=== PATIENT | male | born 1940 | race Caucasian/White ===

== ENCOUNTER → 2016-08-26 | Outpatient (CLI) | payer OTHER, MEDICARE ==
[~2016-08-26] MED LIST: AMLO5TAB4 PO; ASPI81TA21 PO; FISHOIL PO; GLC5500 PO; LISI-725 PO; LOVA40TA3 PO; MAGN400T5 PO; MULTTAB PO; SYN112 PO
[2016-08-26 13:20] LABS: ALT/SGPT 24 U/L (12-78); AST/SGOT 17 U/L (15-37); BLOOD UREA NITROGEN 16 mg/dl (7-18); BUN/CREATININE RATIO 15.9 (10-20); CALCIUM 9.4 mg/dl (8.5-10.1); CARBON DIOXIDE 26 mmol/L (21-32); CHLORIDE 104 mmol/L (98-107); CHOLESTEROL 193 mg/dl (0-200); GLUCOSE 193 mg/dl (70-99); POTASSIUM 4.3 mmol/L (3.5-5.1); SODIUM 139 mmol/L (136-145); TRIGLYCERIDES 197 mg/dl (0-150); VERY LOW DENSITY LIPOPROT CALC 39 mg/dl
[2016-08-26 13:23] LABS: ESTIMATED AVERAGE GLUCOSE 183 mg/dl; HA1C FLAG Normal (Normal)
[2016-08-26 13:30] LABS: CHOLESTEROL/HDL RATIO 5.4; HDL CHOLESTEROL 36 mg/dl; LDL CHOLESTEROL CALCULATED 118 mg/dl
[2016-08-26 13:45] LABS: RATIO 9.3 mcg/mg (0-30.0)
== END | disposition home or self-care (01) ==
LOC: C.LABMFLN 07:28
PROVIDERS: ATTEND Family Medicine
DX: E11.9 Type 2 diabetes mellitus without complications (principal); E78.00 Pure hypercholesterolemia, unspecified; E03.9 Hypothyroidism, unspecified; I10 Essential (primary) hypertension

== ENCOUNTER → 2016-11-25 | Outpatient (CLI) | payer OTHER, MEDICARE ==
[2016-11-25 13:54] LABS: BLOOD UREA NITROGEN 18 mg/dl (7-18); BUN/CREATININE RATIO 18.1 (10-20); CALCIUM 9.2 mg/dl (8.5-10.1); CARBON DIOXIDE 28 mmol/L (21-32); CHLORIDE 108 mmol/L (98-107); CREATININE 0.99 mg/dl (0.60-1.40); GLUCOSE 137 mg/dl (70-99); POTASSIUM 4.2 mmol/L (3.5-5.1); SODIUM 144 mmol/L (136-145)
[2016-11-25 13:57] LABS: ESTIMATED AVERAGE GLUCOSE 140 mg/dl; HA1C FLAG Normal (Normal)
== END | disposition home or self-care (01) ==
LOC: C.LABMFLN 08:59
PROVIDERS: ATTEND Family Medicine
DX: E11.9 Type 2 diabetes mellitus without complications (principal); E78.00 Pure hypercholesterolemia, unspecified

== ENCOUNTER → 2016-12-02 | Outpatient (CLI) | payer OTHER, MEDICARE | END | disposition home or self-care (01) | LOC: C.LABMFLN 15:00 | PROVIDERS: ATTEND Family Medicine | DX: R10.9 Unspecified abdominal pain (principal) ==

== ENCOUNTER → 2017-04-03 | Outpatient (CLI) | payer OTHER, MEDICARE ==
[2017-04-03 13:10] LABS: ESTIMATED AVERAGE GLUCOSE 134 mg/dl; HA1C FLAG Normal (Normal)
[2017-04-03 13:18] LABS: ALT/SGPT 26 U/L (12-78); BLOOD UREA NITROGEN 18 mg/dl (7-18); CALCIUM 9.4 mg/dl (8.5-10.1); CARBON DIOXIDE 29 mmol/L (21-32); CHLORIDE 107 mmol/L (98-107); CHOLESTEROL 184 mg/dl (0-200); GLUCOSE 143 mg/dl (70-99); POTASSIUM 4.4 mmol/L (3.5-5.1); SODIUM 141 mmol/L (136-145); TRIGLYCERIDES 90 mg/dl (0-150); VERY LOW DENSITY LIPOPROT CALC 18 mg/dl
[2017-04-03 13:21] LABS: ALB/GLOB RATIO 1.2 (0.9-2); ALKALINE PHOSPHATASE 46 U/L (45-117); AST/SGOT 27 U/L (15-37); CHOLESTEROL/HDL RATIO 4.5; HDL CHOLESTEROL 41 mg/dl; LDL CHOLESTEROL CALCULATED 125 mg/dl
== END | disposition home or self-care (01) ==
LOC: C.LABMFLN 08:34
PROVIDERS: ATTEND Family Medicine
DX: E11.9 Type 2 diabetes mellitus without complications (principal); E78.00 Pure hypercholesterolemia, unspecified; E03.9 Hypothyroidism, unspecified; I10 Essential (primary) hypertension

== ENCOUNTER → 2017-07-11 | Outpatient (CLI) | payer OTHER, MEDICARE ==
[~2017-07-11] MED LIST changes: +ASPI-319 PO; -ASPI81TA21 PO
== END | disposition home or self-care (01) ==
LOC: C.LABMFLN 13:31
PROVIDERS: ATTEND Family Medicine
DX: M54.5 Low back pain (principal)

== ENCOUNTER → 2017-10-02 | Outpatient (CLI) | payer OTHER, MEDICARE ==
[~2017-10-02] MED LIST changes: -ASPI-319 PO; +ASPI81TA21 PO
[2017-10-02 13:50] LABS: HEMOGLOBIN A1C 6.6 % (4.5-5.6)
[2017-10-02 14:15] LABS: ALBUMIN 3.7 gm/dl (3.4-5.0); ALT/SGPT 28 U/L (12-78); AST/SGOT 22 U/L (15-37); BLOOD UREA NITROGEN 20 mg/dl (7-18); CALCIUM 8.9 mg/dl (8.5-10.1); CARBON DIOXIDE 26 mmol/L (21-32); CREATININE 1.07 mg/dl (0.60-1.40); GLUCOSE 166 mg/dl (70-99); POTASSIUM 4.2 mmol/L (3.5-5.1); SODIUM 140 mmol/L (136-145)
[2017-10-02 14:26] LABS: ALKALINE PHOSPHATASE 58 U/L (45-117); CHOLESTEROL 195 mg/dl (0-200); LDL CHOLESTEROL CALCULATED 137 mg/dl; TOTAL PROTEIN 7.2 gm/dl (6.4-8.2)
== END | disposition home or self-care (01) ==
LOC: C.LABMFLN 07:18
PROVIDERS: ATTEND Family Medicine
DX: E11.9 Type 2 diabetes mellitus without complications (principal); E78.00 Pure hypercholesterolemia, unspecified; E03.9 Hypothyroidism, unspecified; I10 Essential (primary) hypertension

== ENCOUNTER 2021-11-23 15:55 | Observation (INO) ==
[2021-11-23 16:58] LABS: Basophils # (auto) 0.02 K/uL (0-0.2); Basophils % (auto) 0.2 %; Eosinophils # (auto) 0.42 K/uL (0-0.5); Eosinophils % (auto) 3.8 %; Hematocrit (blood only) 36.9 % (42-52); Hemoglobin 12.2 g/dL (14.0-18.0); Immature Granulocytes # (auto) 0.03 K/uL (0.00-0.02); Immature Granulocytes % (auto) 0.3 %; Lymphocytes # (auto) 3.44 K/uL (1.2-3.4); Lymphocytes % (auto) 30.9 %; Mean Corpuscular Hemoglobin 30.4 pg (25-34); Mean Corpuscular Hgb Conc 33.1 g/dL (32-36); Mean Platelet Volume 9.1 fL (7.4-10.4); Monocytes # (auto) 1.07 K/uL (0.11-0.59); Monocytes % (auto) 9.6 %; Neutrophils # (auto) 6.14 K/uL (1.4-6.5); Neutrophils % (auto) 55.2 %; Platelet Count 568 K/uL (130-400); RDW Coefficient of Variation 13.9 % (11.5-14.5); RDW Standard Deviation 47.2 fL (36.4-46.3); Red Blood Count 4.01 M/uL (4.7-6.1); White Blood Count 11.12 K/uL (4.8-10.8)
[2021-11-23 17:13] LABS: Alanine Aminotransferase 11 U/L (7-52); Albumin Globulin Ratio 1.2 (0.9-2); Albumin Level 3.8 gm/dl (3.4-5.0); Alkaline Phosphatase 61 U/L (34-104); Anion Gap 7 (3-11); Aspartate Aminotransferase 12 U/L (13-39); BUN Creatinine Ratio 24.2 (10-20); Bilirubin,Total 0.2 mg/dl (0.2-1.0); Blood Urea Nitrogen 30 mg/dl (6-23); Calcium 9.7 mg/dl (8.5-10.1); Carbon Dioxide 30 mmol/L (21-32); Chloride 98 mmol/L (98-107); Est GFR (African American) 63.2 ml/min; Est GFR (Non-African American) 54.6 ml/min; Globulin 3.3 gm/dl (2.5-4.0); Glucose 179 mg/dl (70-99(Fasting)); Potassium 4.3 mmol/L (3.5-5.1); Sodium 135 mmol/L (136-145); Total Protein 7.1 gm/dl (6.0-8.3)
--- NOTE | 2021-11-23 17:33 | Emergency Department Note ---
History of Present Illness General Chief complaint: Skin Problem Stated complaint: BACK SURGERY 11/14, OPEN BED SORES, FALL Time Seen by Provider: 11/23/21 17:08 Source: patient and family (Daughter who at the bedside) Mode of arrival: ambulatory Limitations: no limitations History of Present Illness Maximum Pain Intensity: 5 This patient is a 81-year-old male who comes in with weakness and bedsores. He had L5-S1 back surgery in [place] November 14 and was discharged 2 days later to home his daughter says they have had no home nursing or PT arranged and has had a very hard time at home. Prior to this he was very fit and bicycles every day. He has pain in his back which goes down his leg he had this prior to surgery but is gotten worse since the surgery but not over the last couple days no new numbness weakness over the last couple days no change in bowel or bladder function. He noticed he had a bedsore about 1 day ago because he is not getting up and down. He was seen in [place] [facility] on Friday and had x-rays of the hip and the back which were unremarkable. He fell yesterday in the bathroom and got tangled up with a walker there were no injuries. He has been taking hydrocodone and Valium which is making him very spacey. No fever no chest pain shortness breath or cough he has had the COVID-vaccine and booster x2, no sick contacts, no dysuria hematuria. he has had 1 bowel movement since he last left the hospital and has been somewhat constipated at times. He has some swelling in his left leg. His daughter wants him to go to rehab they do not feel that he can take care of himself quite yet and are [facility] Home Medications Medication Instructions Recorded Confirmed Type multivitamin (Multiple Vitamins) 1 tab PO DAILY 03/03/19 10/08/21 History omega 8-oos-tsz-fish oil 1,000 mg 1 cap PO DAILY 03/03/19 10/08/21 History (120 mg-180 mg) capsule (Fish Oil) Contour glucometer #1 ea 12/07/19 10/08/21 Rx nystatin 100,000 unit/gram topical 1 applic TOPICAL BID PRN #30 g 09/22/2009/12 Rx cream amlodipine 10 mg tablet 10 mg PO DAILY #90 tab 01/29/21 10/08/21 Rx blood sugar diagnostic (Contour #100 ea 02/06/21 10/08/21 Rx Test Strips) pantoprazole 20 mg tablet,delayed 20 mg PO DAILY 14 Days #14 tab 03/08/21 10/08/21 Rx release lisinopril 40 mg tablet 40 mg PO DAILY #90 tab 03/22/21 10/08/21 Rx cholecalciferol (vitamin D3) 125 125 mcg PO DAILY 04/05/21 10/08/21 History mcg (5,000 unit) capsule levothyroxine 112 mcg tablet 112 mcg PO DAILY #90 tab 04/16/21 10/08/21 Rx empagliflozin 25 mg tablet 25 mg PO QAM #90 tab 08/14/21 10/08/21 Rx saxagliptin 5 mg tablet 5 mg PO DAILY #90 tab 08/14/21 10/08/21 Rx metformin 500 mg tablet,extended 1,000 mg PO BID #360 tab 10/08/21 10/08/21 Rx release 24hr saw palmetto 1,000 mg capsule 1,000 mg PO DAILY 10/08/21 10/08/21 History glipizide 10 mg tablet 10 mg PO BID #360 tab 10/11/21 Rx Allergies Allergy/AdvReac Type Severity Reaction Status Date / Time No Known Allergies Allergy Verified 10/08/21 13:59 Past Med/Surg History Medical History Back pain Benign essential hypertension Carpal tunnel syndrome, right Chills Chronic left sacroiliac joint pain Diabetes mellitus Hypercholesterolemia Hypothyroidism Left foot drop Lethargy Lumbago Lumbar radiculopathy Medicare annual wellness visit, subsequent Pulmonary nodules Sacroiliitis Type 2 diabetes mellitus Vitamin B12 deficiency Surgical History Hx of tonsillectomy S/P cholecystectomy S/P splenectomy Family History Father Heart disease CHF Mother Cancer leukemia Social History Smoking Status: Never smoker Age Started Using Tobacco: 13; Age Quit Using Tobacco: 19; packs per day: 1; Hx Alcohol Use: No Hx Substance Use: No Preferred Language: Citizen Of [place] Visual Impairment: No Limitations Hearing Ability: Normal marital status: Current Living Situation: Spouse current occupational status: retired Feels Safe at Home: Yes caffeine: Yes (coffee) Dental Care, Regularly: No Physical Activity Frequency: Other Physical Activity Frequency Comment: limited activity d/t fx tibia - rides bike Seatbelt Use: always Sunscreen Use: No Review of Systems A total of 10 systems reviewed and were otherwise negative Physical Exam Vital Signs Vital Signs - 24 hr 11/23/21 16:16 11/23/21 17:55 11/23/21 21:00 Temperature 36.8 C 36.8 C 36.8 C Temperature Source Oral Oral Oral Pulse Rate 77 Pulse Rate [Apical] 70 91 H Pulse Rhythm [Apical] Regular Regular Respiratory Rate 16 18 16 Respiratory Effort / Characteristics Non-Labored Respiratory Depth Normal Blood Pressure 115/68 Blood Pressure [Right Arm] 130/73 139/72 Blood Pressure Mean 83 Blood Pressure Mean [Right Arm] 92 94 Pulse Oximetry 98 97 93 Oxygen Delivery Method Room Air Room Air Sepsis Recent Fever Within 48 Hours No Sepsis New/Unexplained Change in Mental Status No Sepsis Action Taken by Nursing No Action Required General: Well developed well nourished in no acute distress, breathing comfortably on room air. Normal speech HEENT: Normal cephalic atraumatic. Pupils are equal round and reactive to light. Extraocular movements are intact. Oropharynx is pink with moist mucous membranes. No swelling of the mouth lips or tongue. Neck: Supple with a midline trachea. No meningeal signs or stiffness, no JVD or bruits. No Stridor. Chest: Clear to auscultation bilaterally. No wheezes or rhonchi. No increased work of breathing. Heart: Regular rate and rhythm without murmurs or gallops. Abdomen: Soft nontender, nondistended without rebound guarding or rigidity. Extremities: No cyanosis clubbing. There is mild lower extremity edema in the left compared to the right. No calf tenderness or assymetry Spine/Back. Non tender to palpation. No CVA tenderness. The incision is intact there is a small incision from the drain in the right lower back as well. There is no redness or pus drainage there is minimal postop swelling. Buttocks: There is some superficial skin breakdown centrally but no redness or warmth or drainage. Skin: Good turgor without rashes. Neurologic exam: Cranial nerves two through 12 are intact. Motor and sensation are intact and symmetrical throughout. Course Administered Medications Discontinued Medications Ketorolac Tromethamine (Ketorolac Tromethamine 15 Mg/Ml Vial) 10 mg IV NOW ONE Stop: 11/23/21 21:06 Last Admin: 11/23/21 21:21 Dose: Not Given Documented by: [id number] Morphine Sulfate (Morphine Sulfate 2 Mg/Ml Carp) 2 mg IV NOW STA Stop: 11/23/21 18:34 Last Admin: 11/23/21 18:39 Dose: 2 mg Documented by: [id number] Morphine Sulfate (Morphine Sulfate 2 Mg/Ml Carp) 2 mg IV NOW STA Stop: 11/23/21 19:15 Last Admin: 11/23/21 19:30 Dose: 2 mg Documented by: [id number] Morphine Sulfate (Morphine Sulfate 2 Mg/Ml Carp) 2 mg IV NOW STA Stop: 11/23/21 21:09 Last Admin: 11/23/21 21:19 Dose: 2 mg Documented by: [id number] Ondansetron HCl (Ondansetron Inj 2 Mg/Ml 2 Ml Vial) 4 mg IV NOW STA Stop: 11/23/21 18:34 Last Admin: 11/23/21 18:40 Dose: 4 mg Documented by: [id number] Medical Decision Making Differential Diagnosis Bedsore, weakness, postop complication, DVT, infection, electrolyte or metabolic Medical Records Attestation: I reviewed the patient's medical records. Home Medications Current Medication List: was personally reviewed by me Laboratory Data Attestation: I reviewed the patient's lab results. Result diagrams: 11/23/21 16:35 11/23/21 16:35 Lab Results 11/23/21 11/23/21 11/23/21 Range/Units 16:35 16:35 17:30 WBC 11.12 H (4.8-10.8) K/uL RBC 4.01 L (4.7-6.1) M/uL Hgb 12.2 L (14.0-18.0) g/dL Hct 36.9 L (42-52) % MCV 92.0 (80-100) fL MCH 30.4 (25-34) pg MCHC 33.1 (32-36) g/dL RDW Std Deviation 47.2 H (36.4-46.3) fL RDW Coeff of Karen 13.9 (11.5-14.5) % Plt Count 568 H (130-400) K/uL MPV 9.1 (7.4-10.4) fL Immature Gran % (Auto) 0.3 % Neut % (Auto) 55.2 % Lymph % (Auto) 30.9 % Forrest % (Auto) 9.6 % Eos % (Auto) 3.8 % Baso % (Auto) 0.2 % Neut # (Auto) 6.14 (1.4-6.5) K/uL Lymph # (Auto) 3.44 H (1.2-3.4) K/uL Forrest # (Auto) 1.07 H (0.11-0.59) K/uL Eos # (Auto) 0.42 (0-0.5) K/uL Baso # (Auto) 0.02 (0-0.2) K/uL Immature Gran # (Auto) 0.03 H (0.00-0.02) K/uL Sodium 135 L (136-145) mmol/L Potassium 4.3 (3.5-5.1) mmol/L Chloride 98 (98-107) mmol/L Carbon Dioxide 30 (21-32) mmol/L Anion Gap 7 (3-11) BUN 30 H (6-23) mg/dl Creatinine 1.24 (0.6-1.4) mg/dl Est Cr Clr Drug Dosing Not Reportable Est GFR ( Amer) 63.2 ml/min Est GFR (Non-Af Amer) 54.6 ml/min BUN/Creatinine Ratio 24.2 H (10-20) Glucose 179 H (70-99(Fasting)) mg/dl Calcium 9.7 (8.5-10.1) mg/dl Total Bilirubin 0.2 (0.2-1.0) mg/dl AST 12 L (13-39) U/L ALT 11 (7-52) U/L Alkaline Phosphatase 61 (34-104) U/L Total Protein 7.1 (6.0-8.3) gm/dl Albumin 3.8 (3.4-5.0) gm/dl Globulin 3.3 (2.5-4.0) gm/dl Albumin/Globulin Ratio 1.2 (0.9-2) Urine Color Urine Appearance (Clear) Urine pH (4.5-7.5) Ur Specific [place] (1.000-1.030) Urine Protein (Negative) Urine Glucose (UA) (Negative) Urine Ketones (Negative) Urine Blood (Negative) Urine Nitrite (Negative) Urine Bilirubin (Negative) Urine Urobilinogen (Negative) Ur Leukocyte Esterase (Negative) SARS-CoV-2, RNA, NAAT NEGATIVE (NEGATIVE) 11/23/21 Range/Units 18:00 WBC (4.8-10.8) K/uL RBC (4.7-6.1) M/uL Hgb (14.0-18.0) g/dL Hct (42-52) % MCV (80-100) fL MCH (25-34) pg MCHC (32-36) g/dL RDW Std Deviation (36.4-46.3) fL RDW Coeff of Karen (11.5-14.5) % Plt Count (130-400) K/uL MPV (7.4-10.4) fL Immature Gran % (Auto) % Neut % (Auto) % Lymph % (Auto) % Forrest % (Auto) % Eos % (Auto) % Baso % (Auto) % Neut # (Auto) (1.4-6.5) K/uL Lymph # (Auto) (1.2-3.4) K/uL Forrest # (Auto) (0.11-0.59) K/uL Eos # (Auto) (0-0.5) K/uL Baso # (Auto) (0-0.2) K/uL Immature Gran # (Auto) (0.00-0.02) K/uL Sodium (136-145) mmol/L Potassium (3.5-5.1) mmol/L Chloride (98-107) mmol/L Carbon Dioxide (21-32) mmol/L Anion Gap (3-11) BUN (6-23) mg/dl Creatinine (0.6-1.4) mg/dl Est Cr Clr Drug Dosing Est GFR ( Amer) ml/min Est GFR (Non-Af Amer) ml/min BUN/Creatinine Ratio (10-20) Glucose (70-99(Fasting)) mg/dl Calcium (8.5-10.1) mg/dl Total Bilirubin (0.2-1.0) mg/dl AST (13-39) U/L ALT (7-52) U/L Alkaline Phosphatase (34-104) U/L Total Protein (6.0-8.3) gm/dl Albumin (3.4-5.0) gm/dl Globulin (2.5-4.0) gm/dl Albumin/Globulin Ratio (0.9-2) Urine Color Yellow Urine Appearance Clear (Clear) Urine pH 5.0 (4.5-7.5) Ur Specific [place] 1.025 (1.000-1.030) Urine Protein Negative (Negative) Urine Glucose (UA) 3+ H (Negative) Urine Ketones Negative (Negative) Urine Blood Negative (Negative) Urine Nitrite Negative (Negative) Urine Bilirubin Negative (Negative) Urine Urobilinogen Negative (Negative) Ur Leukocyte Esterase Negative (Negative) SARS-CoV-2, RNA, NAAT (NEGATIVE) Imaging Data Radiologist's Impression: Venous Doppler Study 11/23/21 17:26 LEFT LOWER EXTREMITY VENOUS DOPPLER HISTORY: Left leg swelling. COMPARISON STUDY: None. FINDINGS: There is normal compressibility, flow, and augmentation within the left lower extremity deep venous system. IMPRESSION: No DVT within the left lower extremity. ACT 112: Negative or not required by law. Electronically signed by: Alexei Zazueta M.D. 11/23/2021 8:00 PM MDM Narrative This patient comes in as described above. He had some bedsores and difficulty with his pain at home he has no new numbness or weakness no new change in bowel or bladder function the incision has some mild postop swelling but no redness warmth or drainage. The incision is intact. There is a 6 small bedsore which is superficial at this point. I think the patient does need rehab and pain management. Blood work was obtained. He did receive morphine 2 mg IV while he was here as well as receive Zofran 4 mg IV. He seems much more comfortable with this his white count is mildly elevated however there is no signs of infection. he has no significant electrolyte or metabolic abnormalities. Ultrasound was leg was unremarkable. He is having trouble getting around at home and I do think he needs rehab. [facility] could not take him tonight we will have him be admitted here for weakness and amatory dysfunction and likely be transferred to [facility] at some point. I did consult the [facility] hospitalist to see him in the ER for these measures Impression & Plan Weakness, Back pain, History of back surgery, Lab test negative for COVID-19 virus, Decubitus skin ulcer Discharge Plan Visit Data Chief Complaint: Skin Problem Stated Complaint: BACK SURGERY 5/, OPEN BED SORES, FALL ED Provider: Iron Wei Discharge Problem: Weakness, Back pain, History of back surgery, Lab test negative for COVID-19 virus, Decubitus skin ulcer Patient Disposition: Admitted As Inpatient Discharge Instructions Interventions: ED Discharge Assessment Last Done: 11/23/21 22:23 Discharge Problem: Back pain Qualifiers: Back pain location: low back pain Chronicity: acute Back pain laterality: left Sciatica presence: with sciatica Sciatica laterality: sciatica of left side Qualified Code(s): M54.42 - Lumbago with sciatica, left side Decubitus skin ulcer Qualifiers: Pressure injury location: sacral region Pressure injury stage: stage 1 Qualified Code(s): L89.151 - Pressure ulcer of sacral region, stage 1
[2021-11-23 18:24] LABS: Appearance Urine Clear (Clear); Bilirubin Urine Negative (Negative); Blood Urine Negative (Negative); Color Urine Yellow; Glucose Urine UA 3+ (Negative); Ketones Urine Negative (Negative); Leukocyte Esterase Urine Negative (Negative); Nitrite Urine Negative (Negative); Protein Urine Negative (Negative); Specific Gravity Urine 1.025 (1.000-1.030); Urobilinogen Urine Negative (Negative)
[2021-11-23] MEDS ORDERED: ONDANSETRON INJ 2 MG/ML 2 ML VIAL IV STA (18:33)
[2021-11-23] MEDS ORDERED: MoRPHine SULFATE 2 MG/ML CARP IV STA ×3 (18:33→21:08)
--- NOTE | 2021-11-23 20:01 | Ultrasound Report ---
LEFT LOWER EXTREMITY VENOUS DOPPLER HISTORY: Left leg swelling. COMPARISON STUDY: None. FINDINGS: There is normal compressibility, flow, and augmentation within the left lower extremity jackelyn p venous system. IMPRESSION: No DVT within the left lower extremity. ACT 112: Negative or not required by law. Electronically signed by: Alexei Zazueta M.D. 11/23/2021 8:00 PM
[2021-11-23] MEDS ORDERED: KETOROLAC TROMETHAMINE 15 MG/ML VIAL IV ONE (21:05)
--- NOTE | 2021-11-23 21:57 | History & Physical Report ---
Date of Service November 23, 2021 Assessment & Plan (1) Low back pain radiating down leg: Plan: Low back pain radiating down left leg/L5-S1 surgery on 11-14-21-- Admit for pain control and rehab assessment Patient reports he was discharged directly to home, and did not establish with home health nursing or and PT/OT yet Acetaminophen 650 mg p.o. every 6 hours as needed mild pain or fever Mcintosh 5/325, 1 p.o. every 4 hours as needed moderate pain Morphine sulfate 2 mg IV every 4 hours as needed severe pain Consult PT/OT Order CT lumbar spine without contrast (2) History of back surgery: Plan: See above (3) Weakness: Plan: Patient with severe generalized weakness and debilitation Will need inpatient PT/OT/rehab (4) Decubitus skin ulcer: Plan: Early skin breakdown on sacrum and buttock areas Consult wound care (5) Lumbar radiculopathy: Plan: Present before and after surgery, with no significant improvement yet (6) Type 2 diabetes mellitus: Plan: Hold empagliflozin, glipizide and saxagliptin Place on Accu-Cheks before meals and at bedtime with NovoLog coverage per scale (7) Hypothyroidism: Plan: Continue levothyroxine 112 mcg daily (8) Benign essential hypertension: Plan: Reduce amlodipine from 10 to 5 mg daily Continue lisinopril 40 mg daily History of Present Illness Chief Complaint: The patient presents to the emergency department with family concerns regarding decreased ability to take care of himself after having L5-S1 back surgery at [facility] on November 14, being discharged to home on November 16, and attempting to take care of himself at home. Primary Care Provider: Jarrett Renteria MD The patient is an 81-year-old male with a past medical history including L5-S1 back surgery at [facility] on November 14, polyneuropathy, left lower extremity radiculopathy, cervical cord myelomalacia, chronic left sacroiliac p ain, B12 deficiency, diabetes mellitus, hypothyroidism, hypercholesterolemia, hypertension and plantar fasciitis. Patient presents to the emergency department due to his daughter's concerns regarding his ability to take care of himself. The patient himself reports difficulty dealing with low back pain and pain radiating down his left leg, which she reports has not improved significantly with surgery yet. He has also had significant issues with constipation, despite using MiraLAX, and has not had a bowel movement in 1 week. While in the emergency department, he was noted to have some early skin breakdown on his sacrum and buttock areas. The plan is to admit the patient for pain management, and ultimately [facility]. Allergies Allergy/AdvReac Type Severity Reaction Status Date / Time No Known Allergies Allergy Verified 10/08/21 13:59 Home Medications Medication Instructions Recorded Confirmed Type multivitamin (Multiple Vitamins) 1 tab PO DAILY 03/03/19 10/08/21 History omega 9-ovw-wro-fish oil 1,000 mg 1 cap PO DAILY 03/03/19 10/08/21 History (120 mg-180 mg) capsule (Fish Oil) Contour glucometer #1 ea 12/07/19 10/08/21 Rx nystatin 100,000 unit/gram topical 1 applic TOPICAL BID PRN #30 g 09/22/20 10/08/21 Rx cream amlodipine 10 mg tablet 10 mg PO DAILY #90 tab 01/29/21 10/08/21 Rx blood sugar diagnostic (Contour #100 ea 02/06/21 10/08/21 Rx Test Strips) pantoprazole 20 mg tablet,delayed 20 mg PO DAILY 14 Days #14 tab 03/08/21 10/08/21 Rx release lisinopril 40 mg tablet 40 mg PO DAILY #90 tab 03/22/21 10/08/21 Rx cholecalciferol (vitamin D3) 125 125 mcg PO DAILY 04/05/21 10/08/21 History mcg (5,000 unit) capsule levothyroxine 112 mcg tablet 112 mcg PO DAILY #90 tab 04/16/21 10/08/21 Rx empagliflozin 25 mg tablet 25 mg PO QAM #90 tab 08/14/21 10/08/21 Rx saxagliptin 5 mg tablet 5 mg PO DAILY #90 tab 08/14/21 10/08/21 Rx metformin 500 mg tablet,extended 1,000 mg PO BID #360 tab 10/08/21 10/08/21 Rx release 24hr saw palmetto 1,000 mg capsule 1,000 mg PO DAILY 10/08/21 10/08/21 History glipizide 10 mg tablet 10 mg PO BID #360 tab 10/11/21 Rx Past Med/Surg History Medical History Back pain Benign essential hypertension Carpal tunnel syndrome, right Chills Chronic left sacroiliac joint pain Diabetes mellitus Hypercholesterolemia Hypothyroidism Left foot drop Lethargy Lumbago Lumbar radiculopathy Medicare annual wellness visit, subsequent Pulmonary nodules Sacroiliitis Type 2 diabetes mellitus Vitamin B12 deficiency Surgical History Hx of tonsillectomy S/P cholecystectomy S/P splenectomy Family History Father Heart disease CHF Mother Cancer leukemia Social History Smoking Status: Never smoker Age Started Using Tobacco: 13; Age Quit Using Tobacco: 19; packs per day: 1; Hx Alcohol Use: No Hx Substance Use: No Preferred Language: [place] Communication Ability: Effective Visual Impairment: No Limitations Hearing Ability: Normal Process Controller Required: No Beliefs That Will Affect Care: None marital status: Current Living Situation: Spouse current occupational status: retired Other Information That Helps Us Care for You: No Feels Safe at Home: Yes Safety Concerns: Feels Safe At This Time caffeine: Yes (coffee) Dental Care, Regularly: No Physical Activity Frequency: Other Physical Activity Frequency Comment: limited activity d/t fx tibia - rides bike Seatbelt Use: always Sunscreen Use: No Assistive Devices: Denture - Upper, Denture - Lower, Glasses and Walker Review of Systems Review of Systems: The patient denies chest pain, palpitations, shortness of breath, dyspnea on exertion, cough, lower extremity swelling, sore throat, fevers, chills, sweats, nausea, vomiting, diarrhea , constipation, abdominal pain, pelvic pain, blood in urine or stool, dysuria, urinary frequency or urgency, lightheadedness, dizziness, headache, memory loss, loss of consciousness, rash, abnormal bruising or bleeding, focal or generalized weakness, numbness or tingling in arms or right leg, generalized arthralgias or myalgias, or night sweats. The review of systems is otherwise negative other than for that already noted above, and at least 10 systems have been reviewed. Physical Exam Physical Exam: The patient is awake, alert and oriented 3, well developed and well nourished, normocephalic and atraumatic, lying in bed and in no acute distress. HEENT--PERRL, EOMI, mucous membranes and oropharynx dry. Neck--supple. No JVD. No bruits. Thyroid normal, trachea midline, no adenopathy. Heart--normal S1 and S2. No murmurs, rubs or gallops. Lungs--clear bilaterally, no respiratory distress, no accessory muscle use. Abdomen--normal bowel sounds and soft. Nontender. Nondistended, no hernias or masses, no organomegaly. Extremities--no cyanosis or clubbing. No edema. Dermatologic--normal skin turgor, normal color, no abnormal lymph nodes, no rash. Neurologic--cranial nerves II through XII grossly intact. Rheumatologic--limited exam due to pain Psychiatric--normal affect. Results & Data Results & Data ([facility]) Vital Signs (Past 12 Hours) Vital Signs Temp Pulse Pulse Resp BP BP Pulse Ox 11/23/21 21:00 36.8 C 91 H 16 139/72 93 11/23/21 17:55 36.8 C 70 18 130/73 97 11/23/21 16:16 36.8 C 77 16 115/68 98 Laboratory Results Laboratory Results WBC 11.12 K/uL (4.8-10.8) H 11/23/21 16:35 RBC 4.01 M/uL (4.7-6.1) L 11/23/21 16:35 Hgb 12.2 g/dL (14.0-18.0) L 11/23/21 16:35 Hct 36.9 % (42-52) L 11/23/21 16:35 MCV 92.0 fL (80-100) 11/23/21 16:35 MCH 30.4 pg (25-34) 11/23/21 16:35 MCHC 33.1 g/dL (32-36) 11/23/21 16:35 RDW Std Deviation 47.2 fL (36.4-46.3) H 11/23/21 16:35 RDW Coeff of Karen 13.9 % (11.5-14.5) 11/23/21 16:35 Plt Count 568 K/uL (130-400) H 11/23/21 16:35 MPV 9.1 fL (7.4-10.4) 11/23/21 16:35 Immature Gran % (Auto) 0.3 % 11/23/21 16:35 Neut % (Auto) 55.2 % 11/23/21 16:35 Lymph % (Auto) 30.9 % 11/23/21 16:35 [place] % (Auto) 9.6 % 11/23/21 16:35 Eos % (Auto) 3.8 % 11/23/21 16:35 Baso % (Auto) 0.2 % 11/23/21 16:35 Neut # (Auto) 6.14 K/uL (1.4-6.5) 11/23/21 16:35 Lymph # (Auto) 3.44 K/uL (1.2-3.4) H 11/23/21 16:35 [place] # (Auto) 1.07 K/uL (0.11-0.59) H 11/23/21 16:35 Eos # (Auto) 0.42 K/uL (0-0.5) 11/23/21 16:35 Baso # (Auto) 0.02 K/uL (0-0.2) 11/23/21 16:35 Immature Gran # (Auto) 0.03 K/uL (0.00-0.02) H 11/23/21 16:35 Sodium 135 mmol/L (136-145) L 11/23/21 16:35 Potassium 4.3 mmol/L (3.5-5.1) 11/23/21 16:35 Chloride 98 mmol/L (98-107) 11/23/21 16:35 Carbon Dioxide 30 mmol/L (21-32) 11/23/21 16:35 Anion Gap 7 (3-11) 11/23/21 16:35 BUN 30 mg/dl (6-23) H 11/23/21 16:35 Creatinine 1.24 mg/dl (0.6-1.4) 11/23/21 16:35 Est Cr Clr Drug Dosing Not Reportable 11/23/21 16:35 Est GFR ( Amer) 63.2 ml/min 11/23/21 16:35 Est GFR (Non-Af Amer) 54.6 ml/min 11/23/21 16:35 BUN/Creatinine Ratio 24.2 (10-20) H 11/23/21 16:35 Glucose 179 mg/dl (70-99(Fasting)) H 11/23/21 16:35 POC Glucose 176 mg/dl (70-99) H 11/23/21 22:36 Calcium 9.7 mg/dl (8.5-10.1) 11/23/21 16:35 Total Bilirubin 0.2 mg/dl (0.2-1.0) 11/23/21 16:35 AST 12 U/L (13-39) L 11/23/21 16:35 ALT 11 U/L (7-52) 11/23/21 16:35 Alkaline Phosphatase 61 U/L (34-104) 11/23/21 16:35 Total Protein 7.1 gm/dl (6.0-8.3) 11/23/21 16:35 Albumin 3.8 gm/dl (3.4-5.0) 11/23/21 16:35 Globulin 3.3 gm/dl (2.5-4.0) 11/23/21 16:35 Albumin/Globulin Ratio 1.2 (0.9-2) 11/23/21 16:35 Urine Color Yellow 11/23/21 18:00 Urine Appearance Clear (Clear) 11/23/21 18:00 Urine pH 5.0 (4.5-7.5) 11/23/21 18:00 Ur Specific [place] 1.025 (1.000-1.030) 11/23/21 18:00 Urine Protein Negative (Negative) 11/23/21 18:00 Urine Glucose (UA) 3+ (Negative) H 11/23/21 18:00 Urine Ketones Negative (Negative) 11/23/21 18:00 Urine Blood Negative (Negative) 11/23/21 18:00 Urine Nitrite Negative (Negative) 11/23/21 18:00 Urine Bilirubin Negative (Negative) 11/23/21 18:00 Urine Urobilinogen Negative (Negative) 11/23/21 18:00 Ur Leukocyte Esterase Negative (Negative) 11/23/21 18:00 SARS-CoV-2, RNA, NAAT NEGATIVE (NEGATIVE) 11/23/21 17:30 Impressions Venous Doppler Study 11/23/21 17:26 LEFT LOWER EXTREMITY VENOUS DOPPLER HISTORY: Left leg swelling. COMPARISON STUDY: None. FINDINGS: There is normal compressibility, flow, and augmentation within the left lower extremity deep venous system. IMPRESSION: No DVT within the left lower extremity. ACT 112: Negative or not required by law. Electronically signed by: Alexei Zazueta M.D. 11/23/2021 8:00 PM Code Status & VTE Plan Code Status Full code VTE Prophylaxis Plan VTE Prophylaxis will be ordered: Yes PG Care Time/CCT Total # of Minutes Spent Total Time Spent with Patient: Total time spent is greater than 50% in coordination of care (as documented) at patient's floor/unit and/or counseling patient: Coding Level of Care Code INT OBSERVATION CARE 70M LVL 3 Diagnoses Low back pain radiating down leg M54.50; M79.606 Weakness R53.1 History of back surgery Z98.890 Decubitus skin ulcer L89.151 Pressure injury location: sacral region Pressure injury stage: stage 1 Lumbar radiculopathy M54.16 Type 2 diabetes mellitus E11.9 Hypothyroidism E03.9 Benign essential hypertension I10 (1) Decubitus skin ulcer Pressure injury location: sacral region Pressure injury stage: stage 1 Qualified Code(s): L89.151 - Pressure ulcer of sacral region, stage 1
[2021-11-23] MEDS ORDERED: LACTULOSE SYRUP 30 GM/45 ML UDP PO PRN (22:10)
[2021-11-23] MEDS ORDERED: CARBOHYDRATES FOR HYPOGLYCEMIA PO PRN (22:54)
[2021-11-23] MEDS ORDERED: GLUCOSE 10 TABS/TUBE PO PRN (22:54)
[2021-11-23] MEDS ORDERED: ACETAMINOPHEN 325 MG TAB PO PRN (22:54)
[2021-11-23] MEDS ORDERED: GLUCOSE 40% GEL 15 GM TUBE PO PRN (22:54)
[2021-11-23] MEDS ORDERED: ONDANSETRON INJ 2 MG/ML 2 ML VIAL IV PRN (22:54)
[2021-11-23] MEDS ORDERED: GLUCAGON FOR INJ 1 MG VIAL SQ PRN (22:54)
[2021-11-23] MEDS ORDERED: HYDROCODONE/ACETAMOPHEN 5/325MG TAB PO PRN (22:54)
[2021-11-23] MEDS ORDERED: DEXTROSE 50% 50 ML SYRINGE IV PRN (22:54)
--- NOTE | 2021-11-23 23:46 | Communication Note ---
Date of Service: November 23, 2021 Msged about Relistor by pharmacy. Patient not on chronic narcotics; had recent post-op use. Will defer Relistor for now. Adjusted bowel regimen.
[2021-11-24] MEDS ORDERED: INSULIN ASPART PER UNIT ONE (00:28)
[2021-11-24] MEDS: POLYETHYLENE (MIRALAX) 17 GM PACK PO SCH ×3 (00:31→20:47)
[2021-11-24] MEDS: DOCUSATE SODIUM 100 MG CAP PO SCH ×3 (00:31→20:47)
[2021-11-24] MEDS: ENOXAPARIN INJ 30 MG/0.3 ML SYR SQ SCH ×2 (00:31→20:46)
[2021-11-24] MEDS: MoRPHine SULFATE 2 MG/ML CARP IV PRN ×2 (02:07→07:46)
[2021-11-24] MEDS: LEVOTHYROXINE SODIUM 112 MCG TABLET PO SCH (05:52)
[2021-11-24 07:56] LABS: Estimated Average Glucose 192 mg/dl; Hemoglobin A1C 8.3 % (4.5-5.6)
[2021-11-24] MEDS ORDERED: METHYLNALTREXONE BROMIDE 12 MG/0.6 ML VIAL SQ SCH (09:00)
[2021-11-24] MEDS ORDERED: POLYETHYLENE (MIRALAX) 17 GM PACK PO SCH (09:00)
--- NOTE | 2021-11-24 09:28 | CT Scan Report ---
CT lumbar spine wo con CLINICAL HISTORY: low back pain, LLE radic persist after OR 11/14 TECHNIQUE: Multidetector row helical CT of the lumbar spine was performed without administration of i ntravenous contrast. Coronal and sagittal reformations were obtained. Automated dose lowering techniq ues and/or adjustment according to patient size were utilized for this exam. CT DOSE: 688.16 mGy.cm Comparison: Comparison is made to MRI lumbar spine 10/16/2020 FINDINGS: For counting purposes, the last complete intervertebral disc space is considered L5-S1. Patient is status post placement of posterior fixation hardware at L5-S1. There is grade 1 anterolist hesis of L5-S1 with bilateral pars defects noted. Degenerative changes are noted in the visualized sp ine. Vertebral body alignment is within normal limits. Surrounding soft tissues are unremarkable. IMPRESSION: Redemonstration of degenerative changes and grade 1 anterolisthesis of L5-S1 status post placement of posterior fixation hardware. No acute abnormalities are seen. ACT 112: Negative or not required by law. Electronically signed by: Michael Morfin M.D. 11/24/2021 9:26 AM
[2021-11-24] MEDS: INSULIN ASPART PER UNIT SC SCH ×4 (09:38→20:51)
[2021-11-24] MEDS: amLODIPine BESYLATE 5 MG TAB PO SCH (09:50)
[2021-11-24] MEDS: MULTIVITAMIN TAB PO SCH (09:50)
[2021-11-24] MEDS: lisinopril 40 MG TAB PO SCH (09:50)
[2021-11-24] MEDS: CHOLECALCIFEROL 5,000 UNITS 125 MCG TAB PO SCH (09:50)
[2021-11-24] MEDS ORDERED: oxyCODONE HCL IR 5 MG TAB (IMMEDIATE RELEASE) PO PRN (11:42)
[2021-11-24] MEDS ORDERED: SOD PHOSPHATE/SOD BIPHOSPHATE ENEMA 132 ML BTL PR PRN ×2 (11:42→14:43)
[2021-11-24] MEDS ORDERED: MoRPHine SULFATE 2 MG/ML CARP IV PRN (11:47)
--- NOTE | 2021-11-24 11:48 | Hospitalist Progress Note ---
Date of Service November 24, 2021 Assessment & Plan (1) Low back pain radiating down leg: Plan: Low back pain radiating down left leg/L5-S1 surgery on 11-14-21 [place] [place] Lives at home with the and unable to independently function Referral made to [facility] management working on this Pain not controlled with [place]. Seems improved with morphine and tolerating this without ill effects Transition [place] to Oxy IR watching closely given his advanced age add decadron with conversion to oral prednisone tomorrow (as likely with edema which is contributing to radicular symptoms) if no improvement, may need to notify his surgeon From a medical standpoint, can be discharged to rehab when bed becomes available (2) Constipation: Plan: Likely result of opiate medication and decreased ambulation over the past week Encourage adequate oral hydration and ambulation if able Bowel regimen initiated (MiraLAX, Colace, as needed fleets enema) (3) History of back surgery: Plan: See above (4) Weakness: Plan: Patient with severe generalized weakness and debilitation Will need inpatient PT/OT/rehab (5) Decubitus skin ulcer: Plan: Early skin breakdown on sacrum and buttock areas Consult wound care (6) Lumbar radiculopathy: Plan: Present before and after surgery, with no significant improvement yet (7) Type 2 diabetes mellitus: Plan: Hold empagliflozin, glipizide and saxagliptin Place on Accu-Cheks before meals and at bedtime with NovoLog coverage per scale (8) Hypothyroidism: Plan: Continue levothyroxine 112 mcg daily (9) Benign essential hypertension: Plan: Reduce amlodipine from 10 to 5 mg daily Continue lisinopril 40 mg daily Plan: Medically stable for discharge. Awaiting rehab Plan of care discussed with Dr. Key Admission and Anticipated Discharge Date Admission Date: November 23, 2021 Subjective Patient seen on daily rounds today. Hospitalized with low back pain following recent robot-assisted laminotomy for lumbosacral spondylosis with radiculopathy. He was subsequently discharged home and his pain remains severe with radiculopathy (mostly left leg). Lives with the and is struggling to independently perform ADLs. Has been since hospitalized for adequate pain control and placement. Referral made to [facility]. In addition, patient's complaining of constipation. Last BM approximately 1 week ago. Denies abdominal pain, nausea or vomiting. Is passing flatus. Review of Systems Review of Systems: All systems reviewed and are unremarkable except as noted in HPI and below Denies fevers, chills, headache, nasal congestion, sore throat, cough, chest pain, shortness of breath, palpitations, orthopnea, PND, abdominal pain, nausea, vomiting, diarrhea, constipation, dysuria, hematuria, frequency, joint pain or swelling, easy bruising or bleeding, skin lesions or rashes. Physical Exam Physical Exam: General: Resting comfortably in his hospital bed. Appears younger than stated age. NAD. HEENT: Head is AT/NC. Buccal mucosa is moist and pink Neck: No JVD. Negative hepatojugular reflex Cardiac: RRR 2/6 KELLY Lungs: CTA without W/R/R Abdomen: Normoactive X4. Soft and nontender in all quadrants. Extremities: No peripheral clubbing cyanosis or edema. Low back with well approximated incision that is clean and dry. Negative straight leg raise bilaterally. Neuro: A&O X4. Cranial nerves II through XII are grossly intact. No focal neuro deficits Skin: No obvious skin lesions or rashes Psych: Appropriate affect. Pleasant and cooperative Results & Data Results & Data ([facility]) Laboratory Results 11/23/21 16:35 11/23/21 16:35 PG Care Time/CCT Total # of Minutes Spent Total Time Spent with Patient: Total time spent is greater than 50% in coordination of care (as documented) at patient's floor/unit and/or counseling patient: Coding Level of Care Code 45594 Subseq Obs Care Lvl 2 Diagnoses Low back pain radiating down leg M54.50; M79.606 History of back surgery Z98.890 Weakness R53.1 Decubitus skin ulcer L89.151 Pressure injury location: sacral region Pressure injury stage: stage 1 Lumbar radiculopathy M54.16 Type 2 diabetes mellitus E11.9 Hypothyroidism E03.9 Benign essential hypertension I10 Constipation K59.00 (1) Decubitus skin ulcer Pressure injury location: sacral region Pressure injury stage: stage 1 Qualified Code(s): L89.151 - Pressure ulcer of sacral region, stage 1
[2021-11-24] MEDS ORDERED: dexAMETHasone 8 MG in SYRINGE 0 ML IV STA (11:56)
[2021-11-25] MEDS: LEVOTHYROXINE SODIUM 112 MCG TABLET PO SCH (06:25)
[2021-11-25] MEDS ORDERED: predniSONE 20 MG TAB PO SCH (09:00)
[2021-11-25] MEDS: lisinopril 40 MG TAB PO SCH (09:33)
[2021-11-25] MEDS: DOCUSATE SODIUM 100 MG CAP PO SCH (09:33)
[2021-11-25] MEDS: POLYETHYLENE (MIRALAX) 17 GM PACK PO SCH (09:34)
[2021-11-25] MEDS: CHOLECALCIFEROL 5,000 UNITS 125 MCG TAB PO SCH (09:34)
[2021-11-25] MEDS: amLODIPine BESYLATE 5 MG TAB PO SCH (09:34)
[2021-11-25] MEDS: INSULIN ASPART PER UNIT SC SCH ×2 (09:34→12:52)
[2021-11-25] MEDS: MULTIVITAMIN TAB PO SCH (09:34)
--- NOTE | 2021-11-25 12:52 | Discharge Summary ---
Date of Service November 25, 2021 Admission HPI Per Admitting Provider The patient is an 81-year-old male with a past medical history including L5-S1 back surgery at [facility] on November 14, polyneuropathy, left lower extremity radiculopathy, cervical cord myelomalacia, chronic left sacroiliac pain, B12 deficiency, diabetes mellitus, hypothyroidism, hypercholesterolemia, hypertension and plantar fasciitis. Patient presents to the emergency department due to his daughter's concerns regarding his ability to take care of himself. The patient himself reports difficulty dealing with low back pain and pain radiating down his left leg, which she reports has not improved significan tly with surgery yet. He has also had significant issues with constipation, despite using MiraLAX, and has not had a bowel movement in 1 week. While in the emergency department, he was noted to have some early skin breakdown on his sacrum and buttock areas. The plan is to admit the patient for pain management, and [facility]. Principal Diagnosis 1. Intractable back pain with radiculopathy s/p recent back surgery at [facility] [place] 11/14/21 2. Constipation-resolved 3. Generalized weakness/debility Discharge Exam GENERAL: 81 yo well-developed, well-nourished elderly WM. NAD. LUNGS: Clear to auscultation bilaterally. No accessory muscle use. No W/R/R. CARDIOVASCULAR: Regular rate and rhythm. ABDOMEN: Soft, non-tender and non-distended. BS normal x 4 quad. EXTREMITIES: No edema. Non-tender. Peripheral pulses +2/4. NEUROLOGIC: A&O x3. PSYCHIATRIC: Cooperative. Appropriate mood and affect. SKIN: skin breakdown noted on right inner buttocks. otherwise skin warm/dry/intact. Discharge Data Allergies Allergy/AdvReac Type Severity Reaction Status Date / Time No Known Allergies Allergy Verified 10/08/21 13:59 Consultations 11/23/21 21:04 ED Decision to Admit Stat Ordered Studies Venous Doppler Study 11/23/21 17:26 LEFT LOWER EXTREMITY VENOUS DOPPLER HISTORY: Left leg swelling. COMPARISON STUDY: None. FINDINGS: There is normal compressibility, flow, and augmentation within the left lower extremity deep venous system. IMPRESSION: No DVT within the left lower extremity. ACT 112: Negative or not required by law. Electronically signed by: Alexei Zazueta M.D. 11/23/2021 8:[address] 11/24/21 03:43 CT lumbar spine wo con CLINICAL HISTORY: low back pain, LLE radic persist after OR 11/14 TECHNIQUE: Multidetector row helical CT of the lumbar spine was performed without administration of intravenous contrast. Coronal and sagittal reformations were obtained. Automated dose lowering techniques and/or adjustment according to patient size were utilized for this exam. CT DOSE: 688.16 mGy.cm Comparison: Comparison is made to MRI lumbar spine 10/16/2020 FINDINGS: For counting purposes, the last complete intervertebral disc space is considered L5-S1. Patient is status post placement of posterior fixation hardware at L5-S1. There is grade 1 anterolisthesis of L5-S1 with bilateral pars defects noted. Degenerative changes are noted in the visualized spine. Vertebral body alignment is within normal limits. Surrounding soft tissues are unremarkable. IMPRESSION: Redemonstration of degenerative changes and grade 1 anterolisthesis of L5-S1 status post placement of posterior fixation hardware. No acute abnormalities are seen. ACT 112: Negative or not required by law. Electronically signed by: Michael Morfin M.D. 11/24/2021 9:26 AM Hospital Course (1) Low back pain radiating down leg: Low back pain radiating down left leg/L5-S1 surgery on 11-14-21 ([facility] [place]) Lives at home with the and unable to independently function [facility] controlled with [facility]. Seems improved with morphine and tolerating t his without ill effects Transition Mackay to Oxy IR watching closely given his advanced age add decadron with conversion to oral prednisone tomorrow (as likely with edema which is contributing to radicular symptoms) pt reports being pain free, has not required any doses of OxyIR that was written, no L leg symptoms today He is stable for d/c to acute rehab - [facility] can take today f/u with surgeon at [facility] as directed (2) Constipation: Likely result of opiate medication and decreased ambulation over the past week Encourage adequate oral hydration and ambulation if able Bowel regimen initiated (MiraLAX, Colace, as needed fleets enema) (3) History of back surgery: See above (4) Weakness: Patient with severe generalized weakness and debilitation Will need inpatient PT/OT/rehab (5) Decubitus skin ulcer: Early skin breakdown on sacrum and buttock areas wound care consulted but has not yet seen as they do not work over the weekend would encourage cleaning/irrigating with saline and dress with optifoam (6) Lumbar radiculopathy: Present before and after surgery, with no significant improvement yet (7) Type 2 diabetes mellitus: Hold empagliflozin, glipizide and saxagliptin Place on Accu-Cheks before meals and at bedtime with NovoLog coverage per scale (8) Hypothyroidism: Continue levothyroxine 112 mcg daily (9) Benign essential hypertension: Reduced amlodipine from 10 to 5 mg daily Continue lisinopril 40 mg daily Patient is medically and hemodynamically stable for discharge to [facility] for physical rehabilitation. Advised f/u with his back surgeon as directed. F/u with PCP upon d/c from rehab. Plan d/w Dr. Key who has also seen and evaluated this patient prior to discharge. Total Time Total Time Spent Total Time Spent (In Minutes): <30 minutes Discharge Plan Discharge Items Patient Disposition: Transfer Inpatient Rehab Fac Reason For Visit: INTRACTABLE LOW BACK PAIN,LLE RADICULOPATHY,DECUBI Discharge Diagnosis: Back pain Activity: Resume your previous activity Non-emergency contact: Primary Care Provider and Surgeon Call non-emergency contact if: you have any medication questions, your symptoms worsen and your pain is not controlled Follow-up/Referrals: Jarrett Renteria MD [Primary Care Provider] - Diet: Carb Consistent or DM2 Addtl Attending Provider Instructions: You were hospitalized due to low back pain with pain radiating down your left leg. This was felt to be possibly related to postoperative swelling related to your recent back surgery. You were treated with pain medications, steroids, and physical and occupational therapy. Therapy felt that you would benefit from a stay in acute physical rehabilitation. You will be discharged on a tapering cou rse of Prednisone which should be completed as directed. You were also found to be constipated which was felt to be due to a combination of decreased ambulation as well as taking narcotic pain medications for your back. This issue has resolved with medications. Would recommend ongoing high fiber diet and drinking water, in addition to continuing on a daily stool softener called Colace or Docusate Sodium. You can take 1 tablet or capsule twice daily. This can be purchased over the counter but a prescription has been sent to your pharmacy in the event that your insurance will cover it. Case management sent a referral to [facility] which is where you will be discharged to in order to gain strength and improve gait prior to returning home. Of note, you were found to have some skin breakdown on your buttocks. This is most likely due to prolonged sitting/laying with your recent surgery. We would recommend frequent position changes to reduce pressure in this area. You should cleanse the skin/irrigate the area once a day with saline and pat dry, then apply optifoam or other protective dressing to reduce risk of introducing any bacteria into your wound. We would recommend that you follow up with your surgeon as directed. You will be followed by the medical team while at [facility] for rehabilitation. Once discharged, we would advise close follow up with your family doctor. In the event of any questions/concerns, please contact the nonemergency number listed on your discharge paperwork. In the event of a medical emergency, call 911. Pending Studies at Discharge: No Stand-Alone Forms: My [facility] Skilled Items Patient informed of condition?: Yes DNR: No Discharge Level of Care: Acute rehab Communicable Disease: No Discharge Prognosis: Improving Lines: None Urinary Catheter: No Medications and DC Order Prescriptions: New docusate sodium 100 mg Capsule 100 mg PO BID Qty: 60 RF: 0 prednisone 10 mg tablet 10 mg PO DAILY Qty: 23 RF: 0 Continued nystatin 100,000 unit/gram cream 1 applic topical BID PRN (Reason: rash) Qty: 30 RF: 3 (DME) Contour Test Strips Strip See Dose Instructions .ROUTE .MEDSUPPLY Qty: 100 RF: 3 lisinopril 40 mg tablet 40 mg PO DAILY Qty: 90 RF: 3 levothyroxine 112 mcg tablet 112 mcg PO DAILY Qty: 90 RF: 3 empagliflozin 25 mg tablet 25 mg PO QAM Qty: 90 RF: 3 saxagliptin 5 mg tablet 5 mg PO DAILY Qty: 90 RF: 3 glipizide 10 mg tablet 10 mg PO BID Qty: 360 RF: 3 pantoprazole 20 mg tablet,delayed release (DR/EC) 20 mg PO DAILY 14 Days Qty: 14 RF: 0 saw palmetto 1,000 mg capsule 1,000 mg PO DAILY RF: 0 metformin 500 mg tablet extended release 24hr 1,000 mg PO BID Qty: 360 RF: 3 (DME) Contour glucometer Qty: 1 RF: 0 cholecalciferol (vitamin D3) 125 mcg (5,000 unit) capsule 125 mcg PO DAILY RF: 0 cyanocobalamin (vitamin B-12) 1,000 mcg/mL solution 1,000 mcg IM ONCE Qty: 1 RF: 0 multivitamin [Multiple Vitamins] tablet 1 tab PO DAILY RF: 0 omega 9-[id number]-fish oil [Fish Oil] 1,000 mg (120 mg-180 mg) capsule 1 cap PO DAILY RF: 0 Changed amlodipine 10 mg tablet 5 mg PO DAILY Qty: 90 RF: 3 Discharge Orders: Discharge Order (Routine); Ordered 11/25/21 Ordered By: Augusta Crowell/Other Patient Handouts: Managing Type 2 Diabetes Admission Data Admit Date/Time: 11/23/21 21:56 Attending Provider: Jorge Key Admit Provider: Yeison Galicia Primary Care Provider: Jarrett Renteria [facility] ; Jorge Key Other Interventions: Discharge Summary Assessment (RN) Last Done: 11/25/21 12:58 Supervising Physician Co-Signing Physician Notes I supervised Augusta Stephens PA-C on the care of this patient. I interviewed and examined the patient independently of her. The plan is as written in her note except for any following changes/exceptions: None Doing well today. Will plan for [facility] for rehab. Ready for discharge. Coding Level of Care Code 24383 OBS Care - Discharge Diagnoses Low back pain radiating down leg M54.50; M79.606 Constipation K59.00 History of back surgery Z98.890 Weakness R53.1 Decubitus skin ulcer L89.151 Pressure injury location: sacral region Pressure injury stage: stage 1 Lumbar radiculopathy M54.16 Type 2 diabetes mellitus E11.9 Hypothyroidism E03.9 Benign essential hypertension I10
== END 2021-11-25 13:44 ==
LOC: 3N 15:55 → ED 15:55 → SUATTDRO 21:56 → 3N 22:23
DX: L89.151 Pressure ulcer of sacral region, stage 1; E11.9 Type 2 diabetes mellitus without complications; Z98.890 Other specified postprocedural states; I10 Essential (primary) hypertension; Z79.890 Hormone replacement therapy; M79.605 Pain in left leg; E03.9 Hypothyroidism, unspecified; R53.1 Weakness; Z79.899 Other long term (current) drug therapy; M54.16 Radiculopathy, lumbar region; Z79.84 Long term (current) use of oral hypoglycemic drugs; M54.50 Low back pain, unspecified